=== PATIENT | male | born 1985 | race Caucasian/White ===

== ENCOUNTER → 2016-12-26 | Outpatient (CLI) | payer MEDICARE, OTHER | LOC: KOH-I 15:07 | DX: R06.2 Wheezing (principal) | CPT/HCPCS: 71020 ==

== ENCOUNTER 2017-01-30 11:59 | Emergency (ER) | payer MEDICARE, OTHER ==
[2017-01-30 13:22] LABS: HEMOGLOBIN 15.7 gm/dl (14.0-17.5); RED BLOOD COUNT 5.15 M/UL (4.20-5.50)
[2017-01-30 13:46] LABS: BUN/CREATININE RATIO 6 (0-10)
== END 2017-01-30 19:30 | disposition home or self-care (01) ==
LOC: ER1 11:59
PROVIDERS: Emergency Medicine
DX: J18.9 Pneumonia, unspecified organism (principal); E10.65 Type 1 diabetes mellitus with hyperglycemia; G40.909 Epilepsy, unspecified, not intractable, without status epilepticus; Z79.4 Long term (current) use of insulin; Z79.899 Other long term (current) drug therapy
CPT/HCPCS: 36415; 71010; 71275; 80053; 82550; 82553; 83874; 84484; 85025; 85379; 93005; 99285; J7040; J7050; Q9963

== ENCOUNTER 2021-01-10 14:29 | Emergency (ER) | payer MEDICARE, OTHER ==
[2021-01-10 15:48] LABS: HEMOGLOBIN 14.2 gm/dl (14.0-17.5); RED BLOOD COUNT 4.71 M/UL (4.20-5.50); WHITE BLOOD COUNT 6.8 K/UL (4.5-11.0)
[2021-01-10 16:08] LABS: BUN/CREATININE RATIO 5 (0-10)
== END 2021-01-10 17:45 | disposition home or self-care (01) ==
LOC: ER1 14:29
PROVIDERS: Nurse Practitioner
DX: E11.65 Type 2 diabetes mellitus with hyperglycemia (principal); L03.211 Cellulitis of face; J32.4 Chronic pansinusitis; I10 Essential (primary) hypertension; E05.90 Thyrotoxicosis, unspecified without thyrotoxic crisis or storm; Z88.1 Allergy status to other antibiotic agents; Z79.4 Long term (current) use of insulin
CPT/HCPCS: 36415; 70488; 80053; 83605; 85025; 87040; 96365; 99284; J0696; Q9967

== ENCOUNTER 2021-05-27 00:15 | Inpatient (IN) | payer MEDICARE, OTHER ==
[~2021-05-27] VITALS: Ht 190.5 cm; Wt 122.5 kg
[2021-05-27 01:02] LABS: HEMOGLOBIN 15.4 gm/dl (14.0-17.5); RED BLOOD COUNT 5.01 M/UL (4.20-5.50); WHITE BLOOD COUNT 23.6 K/UL (4.5-11.0)
[2021-05-27 01:44] LABS: BUN/CREATININE RATIO 8 (0-10)
[2021-05-27] MEDS ORDERED: XCOPRI100 MG PO (09:30)
[2021-05-27] MEDS ORDERED: DEXCOM G61 EAC1 MC (09:32)
[2021-05-27] MEDS ORDERED: APTIOM800 MG PO (09:33)
[2021-05-27] MEDS ORDERED: NOVOLOG100 UNIT/1 SC (09:34)
[2021-05-27] MEDS ORDERED: CLONAZEPAM1 MG PO (09:35)
[2021-05-27] MEDS ORDERED: CLARINEX5 MG PO (09:35)
[2021-05-27] MEDS ORDERED: VASOTEC 10 MG T10 MG PO (09:35)
[2021-05-27] MEDS ORDERED: PROZAC40 MG PO (09:36)
[2021-05-27 17:37] LABS: WHITE BLOOD COUNT 19.1 K/UL (4.5-11.0)
[2021-05-27 17:39] LABS: RED BLOOD COUNT 4.33 M/UL (4.20-5.50)
[2021-05-28 01:43] LABS: ADENOVIRUS F 40/41 Not Detected (Negative); ASTROVIRUS Not Detected (Negative); CAMPYLOBACTER Not Detected (Negative); CLOSTRIDIUM DIFFICILE TOX A/B Not Detected (Negative); CRYPTOSPORIDIUM Not Detected (Negative); E.COLI 0157 Not Detected (Negative); ENTAMOEBA HISTOLYTICA Not Detected (Negative); ENTEROAGGREGATIVE E.COLI (EAEC Not Detected (Negative); ENTEROPATHOGENIC E.COLI (EPEC) Not Detected (Negative); ENTEROTOXIGENIC E.COLI (ETEC) Not Detected (Negative); GIARDIA LAMBLIA Not Detected (Negative); NOROVIRUS GI/GII Not Detected (Negative); PLESIOMONAS SHIGELLOIDES Not Detected (Negative); ROTOVIRUS A Not Detected (Negative); SALMONELLA Not Detected (Negative); SAPOVIRUS Not Detected (Negative); SHIG/ENTEROINVAS.ECOLI (EIEC) Not Detected (Negative); SHIGA-LIK TOX.PRO.E.COLI (STEC Not Detected (Negative); VIBRIO Not Detected (Negative); VIBRIO CHOLERAE Not Detected (Negative); YERSINIA ENTEROCOLITICA Not Detected (Negative)
[2021-05-28 09:31] LABS: HEMOGLOBIN 12.8 gm/dl (14.0-17.5); RED BLOOD COUNT 4.23 M/UL (4.20-5.50)
[2021-05-28 09:32] LABS: WHITE BLOOD COUNT 14.2 K/UL (4.5-11.0)
[2021-05-29 06:34] LABS: HEMOGLOBIN 10.9 gm/dl (14.0-17.5)
[2021-05-29 06:39] LABS: RED BLOOD COUNT 3.63 M/UL (4.20-5.50); WHITE BLOOD COUNT 7.5 K/UL (4.5-11.0)
[2021-05-30 10:34] LABS: BUN/CREATININE RATIO 10 (0-10)
[2021-05-30 11:31] LABS: HEMOGLOBIN 11.5 gm/dl (14.0-17.5); RED BLOOD COUNT 3.85 M/UL (4.20-5.50)
[2021-05-30 11:35] LABS: WHITE BLOOD COUNT 5.6 K/UL (4.5-11.0)
== END 2021-05-30 16:21 | disposition home or self-care (01) | DRG 101 ==
LOC: ER1 00:15 → CDU 06:47 → M/S 06:47 → CDU 06:47 → M/S 17:09
PROVIDERS: Internal Medicine; Internal Medicine Nephrology; Student in an Organized Health Care Education/Training Program; ADMIT Internal Medicine
DX: G40.909 Epilepsy, unspecified, not intractable, without status epilepticus (principal); M62.82 Rhabdomyolysis; N17.9 Acute kidney failure, unspecified; E87.4 Mixed disorder of acid-base balance; E87.1 Hypo-osmolality and hyponatremia; Z20.822 Contact with and (suspected) exposure to COVID-19; E87.6 Hypokalemia; I10 Essential (primary) hypertension; E10.9 Type 1 diabetes mellitus without complications; Z96.41 Presence of insulin pump (external) (internal); Z79.4 Long term (current) use of insulin
CPT/HCPCS: 36415; 36600; 51701; 70450; 71045; 80053; 80307; 81001; 82550; 82553; 82803; 82962; 83605; 83615; 83735; 83874; 83880; 84100; 84133; 84300; 84439; 84443; 84484; 85025; 86140; 87507; 89050; 93005; 96372; 96374; 96375; 96376; 99285; G0378; G0480; J1200; J1630; J1650; J2060; J7030; P9047; U0002

== ENCOUNTER → 2021-07-19 | Outpatient (CLI) | payer MEDICARE, OTHER ==
[~2021-07-19] MED LIST: APTIOM800 MG PO; CLARINEX5 MG PO; CLONAZEPAM1 MG PO; DEXCOM G61 EAC1 MC; NOVOLOG100 UNIT/1 SC; PROZAC40 MG PO; VASOTEC 10 MG T10 MG PO; XCOPRI100 MG PO
== END ==
LOC: EMI 10:55
DX: G40.209 Localization-related (focal) (partial) symptomatic epilepsy and epileptic syndromes with complex partial seizures, not intractable, without status epilepticus (principal)
CPT/HCPCS: 70553

== ENCOUNTER → 2022-02-07 | Outpatient (CLI) | payer MEDICARE, OTHER | LOC: LAB 13:43 | DX: Z53.9 Procedure and treatment not carried out, unspecified reason (principal) | CPT/HCPCS: 36415; 82565; 84520 ==

== ENCOUNTER → 2022-02-08 | Outpatient (CLI) | payer MEDICARE, OTHER | LOC: CT 11:27 | DX: S02.85XA Fracture of orbit, unspecified, initial encounter for closed fracture (principal); L03.213 Periorbital cellulitis; Z01.812 Encounter for preprocedural laboratory examination | CPT/HCPCS: 70488; Q9967 ==